=== PATIENT | female | born 1960 | race African-American/Black ===

== ENCOUNTER 2021-02-17 10:20 | Observation (INO) ==
[2021-02-17 13:43] LABS: Basophils % 0.2 % (0.0-0.8); Eosinophils % 0.1 % (0.00-10.9); Hematocrit 37.4 VOL% (35.7-47.0); Hemoglobin 12.3 GM/DL (12.0-16.0); Immature Granulocytes % 0.4 %; Immature Granulocytes Absolute 0.03 #; Lymphocytes # 1.3 10*3/uL (1.4-4.0); Lymphocytes % 15.7 % (21.3-54.2); Mean Corpuscular HGB Conc 32.9 GM/DL (32-36); Mean Platelet Volume 11.2 FL (9.6-12.0); Monocytes % 2.7 % (1.7-12.7); Neutrophils % 80.9 % (38.7-73.9); Platelet Count 253 T/CUMM (130-400); Red Blood Count 4.11 MC/CUMM (3.8-5.5); Red Cell Distribution Width 12.8 % (9.3-17.3); White Blood Count 8.1 T/CUMM (4-12)
[2021-02-17 13:59] LABS: Alanine Aminotransferase 31 U/L (13-56); Alkaline Phosphatase 92 U/L (45-117); Amylase 111 U/L (25-115); Aspartate Amino Transferase 28 U/L (0-37); Bilirubin,Total < 0.39 MG/DL (0.2-1.0); Blood Urea Nitrogen 11 MG/DL (7-18); Calcium 9.7 MG/DL (8.5-10.1); Carbon Dioxide 26 MMOL/L (21-32); Estimated Glom Filtration Rate 109 ML/MIN; Glucose 106 MG/DL (74-106); Osmolality,Calculated 275.5 MOS/KG (273-304); Potassium 3.8 MMOL/L (3.5-5.1); Sodium 139 MMOL/L (136-145); Total Protein 8.8 G/DL (6.4-8.2)
[2021-02-17 14:02] LABS: PT Patient Result 10.8 SECS (10.5-12.0); Partial Thromboplastin Time 24.5 SECS (23.9-33.8)
[2021-02-17 14:25] LABS: Lymphocytes 10 % (20-55); Segmented Neutrophils 87 % (50-85); Total Cells Counted 100
[2021-02-17 14:26] LABS: Hypochromasia 1+; Platelet Estimate Normal
[2021-02-17] MEDS ORDERED: DEXTROSE 50% 25 GM/50 ML VIAL IV PRN (16:37)
[2021-02-17] MEDS ORDERED: GLUCAGON 1 MG VIAL IM PRN (16:37)
[2021-02-17] MEDS ORDERED: ONDANSETRON 4 MG/2 ML VIAL IV PRN (16:37)
[2021-02-17] MEDS ORDERED: ACETAMINOPHEN 325 MG TABLET PO PRN (16:37)
[2021-02-17] MEDS ORDERED: hydrALAZINE 20 MG/1 ML VIAL IV PRN (16:37)
[2021-02-17] MEDS: SODIUM CHLORIDE 0.9% 1,000 ML IV SCH (17:33)
[2021-02-17] MEDS: metroNIDAZOLE INJ 500 MG/100 ML PREMIX IV SCH (17:33)
[2021-02-17 18:13] LABS: Hematocrit 36.8 VOL% (35.7-47.0); Hemoglobin 12.2 GM/DL (12.0-16.0)
[2021-02-17] MEDS: CIPROFLOXACIN INJ 400 MG/200 ML PREMIX IV SCH (19:17)
[2021-02-17] MEDS: PANTOPRAZOLE 40 MG VIAL IV SCH (21:55)
[2021-02-17 23:24] LABS: Hematocrit 32.6 VOL% (35.7-47.0); Hemoglobin 10.9 GM/DL (12.0-16.0)
[2021-02-18] MEDS: metroNIDAZOLE INJ 500 MG/100 ML PREMIX IV SCH ×3 (00:55→16:36)
[2021-02-18 05:59] LABS: Basophils % 0.2 % (0.0-0.8); Eosinophils # 0.1 10*3/uL (0.0-0.87); Eosinophils % 0.6 % (0.00-10.9); Hematocrit 33.4 VOL% (35.7-47.0); Hemoglobin 11.4 GM/DL (12.0-16.0); Immature Granulocytes % 0.3 %; Immature Granulocytes Absolute 0.03 #; Lymphocytes # 2.5 10*3/uL (1.4-4.0); Lymphocytes % 27.7 % (21.3-54.2); Mean Corpuscular HGB Conc 34.1 GM/DL (32-36); Mean Corpuscular Volume 88.8 FL (87-102); Mean Platelet Volume 11.3 FL (9.6-12.0); Neutrophils % 62.2 % (38.7-73.9); Platelet Count 232 T/CUMM (130-400); Red Blood Count 3.76 MC/CUMM (3.8-5.5); Red Cell Distribution Width 13.1 % (9.3-17.3); White Blood Count 8.9 T/CUMM (4-12)
[2021-02-18] MEDS: SODIUM CHLORIDE 0.9% 1,000 ML IV SCH (06:18)
[2021-02-18] MEDS: CIPROFLOXACIN INJ 400 MG/200 ML PREMIX IV SCH ×2 (06:18→18:07)
[2021-02-18 06:43] LABS: Osmolality,Calculated 277.4 MOS/KG (273-304); Potassium 3.2 MMOL/L (3.5-5.1)
[2021-02-18] MEDS: PANTOPRAZOLE 40 MG VIAL IV SCH (09:39)
[2021-02-18 18:33] LABS: Bilirubin,Urine Negative (Negative); Blood, Urine Negative (Negative); Glucose,Urine (UA) Negative (Negative); Ketones,Urine Negative (Negative); Nitrite,Urine Negative (Negative); Protein,Urine Negative; RBC,Urine 1 /HPF (0-4); Squamous Epithelial Cell,Urine Occasional /HPF (0-10); Urine Appearance CLEAR (Clear); Urine Color Straw (Yellow); Urine Specific Gravity 1.005 (1.001-1.035); Urine Urobilinogen < 2.0 EU/DL (0.2-1.0)
[2021-02-18] MEDS: PANTOPRAZOLE 40 MG TABLET PO SCH (22:09)
[2021-02-19] MEDS: metroNIDAZOLE INJ 500 MG/100 ML PREMIX IV SCH ×2 (01:22→08:43)
[2021-02-19] MEDS: CIPROFLOXACIN INJ 400 MG/200 ML PREMIX IV SCH (05:01)
[2021-02-19 05:37] LABS: Basophils % 0.4 % (0.0-0.8); Eosinophils # 0.4 10*3/uL (0.0-0.87); Eosinophils % 4.8 % (0.00-10.9); Hematocrit 32.9 VOL% (35.7-47.0); Hemoglobin 10.6 GM/DL (12.0-16.0); Immature Granulocytes % 0.2 %; Immature Granulocytes Absolute 0.02 #; Lymphocytes # 3.3 10*3/uL (1.4-4.0); Lymphocytes % 36.8 % (21.3-54.2); Mean Corpuscular HGB Conc 32.2 GM/DL (32-36); Mean Corpuscular Volume 91.1 FL (87-102); Mean Platelet Volume 11.5 FL (9.6-12.0); Monocytes % 8.4 % (1.7-12.7); Neutrophils % 49.4 % (38.7-73.9); Platelet Count 216 T/CUMM (130-400); Red Blood Count 3.61 MC/CUMM (3.8-5.5); Red Cell Distribution Width 13.3 % (9.3-17.3)
[2021-02-19 06:00] LABS: Calcium 9.1 MG/DL (8.5-10.1); Osmolality,Calculated 281.1 MOS/KG (273-304); Potassium 3.4 MMOL/L (3.5-5.1)
[2021-02-19] MEDS: PANTOPRAZOLE 40 MG TABLET PO SCH (08:43)
[2021-02-19 11:41] VITALS: BP 119/67
== END 2021-02-19 13:38 | disposition home or self-care (01) ==
LOC: N.5E 10:20 → N.ED 10:20 → N.5E 17:05
PROVIDERS: ADMIT Internal Medicine; ATTEND Internal Medicine